=== PATIENT | female | born 1975 | race Caucasian/White ===

== ENCOUNTER 2019-12-27 13:49 | Outpatient (CLI) | payer OTHER, SELFPAY ==
--- NOTE | ~2019-12-27 | US_ITS ---
EXAMINATION: US thyroid DATE: 12/27/2019 14:26 INDICATION: Hypothyroidism. TECHNIQUE: Multiple ultrasound images of the thyroid were obtained. COMPARISON: Ultrasound 10/29/2017 FINDINGS: The right thyroid lobe measures 4.2 x 1.6 x 1.3 cm. The left thyroid lobe measures 4.0 x 1.4 x 1.1 c m. The thyroid demonstrates hypoechogenicity and coarsened echotexture. Vascularity is normal. No di screte nodule. IMPRESSION: 1. Hypoechoic thyroid with coarsened echotexture, likely chronic lymphocytic (Roberto) thyroiditis. Reviewed, dictated and finalized at location A. IMPRESSION: 1. Hypoechoic thyroid with coarsened echotexture, likely chronic lymphocytic (H ashimoto) thyroiditis.
== END 2019-12-27 13:50 | disposition home or self-care (01) ==
PROVIDERS: Visit Provider Internal Medicine Endocrinology, Diabetes & Metabolism
DX: E03.9 Hypothyroidism, unspecified (principal); E04.1 Nontoxic single thyroid nodule
CPT/HCPCS: 76536

== ENCOUNTER 2022-10-10 08:34 | Outpatient (CLI) | payer OTHER, SELFPAY ==
[2022-10-10 17:07] LABS: Cholesterol 232 mg/dL (0-200); HDL Direct 42 mg/dL; Triglycerides 190 mg/dL (<150)
[2022-10-10 17:18] LABS: LDL Cholesterol Direct 115 mg/dL
[2022-10-10 17:54] LABS: Free T4 Free Thyroxine 1.26 ng/mL (0.78-2.19)
[2022-10-10 21:45] LABS: Hemoglobin A1C 5.5 % (<5.7)
== END 2022-10-10 08:35 | disposition home or self-care (01) ==
LOC: ANHWCLAB 08:35
PROVIDERS: Visit Provider Internal Medicine Endocrinology, Diabetes & Metabolism
DX: E03.9 Hypothyroidism, unspecified (principal); Z83.3 Family history of diabetes mellitus
CPT/HCPCS: 36415; 80061; 83036; 84439; 84443